=== PATIENT | female | born 1960 | race Caucasian/White ===

== ENCOUNTER 2023-05-30 05:21 | Day surgery (SDC) | payer BC, OTHER ==
[2023-05-30] MEDS: Dextrose 5%-0.45% NaCl 1,000 ML IV SCH (05:45)
[2023-05-30] MEDS ORDERED: Midazolam 1 MG/ML 2 ML SDV ONE (05:54)
[2023-05-30] MEDS ORDERED: Midazolam 1 MG/ML 2 ML SDV IV ONE (05:55)
[2023-05-30] MEDS ORDERED: fentaNYL 100 MCG/2 ML SDV ONE (05:55)
[2023-05-30] MEDS ORDERED: fentaNYL 100 MCG/2 ML SDV IV ONE (05:55)
[2023-05-30] MEDS: fentaNYL 100 MCG/2 ML SDV IV ONE ×5 (06:22→06:39)
[2023-05-30] MEDS: Midazolam 1 MG/ML 2 ML SDV IV ONE ×6 (06:23→06:31)
== END 2023-05-30 08:15 | disposition home or self-care (01) ==
LOC: DL.ENDO 05:21
PROVIDERS: ATTEND Internal Medicine Gastroenterology
DX: Z12.11 Encounter for screening for malignant neoplasm of colon (principal); D12.3 Benign neoplasm of transverse colon; E66.09 Other obesity due to excess calories; Z68.36 Body mass index [BMI] 36.0-36.9, adult; Z91.040 Latex allergy status
CPT/HCPCS: J2250; J3010; J7042